=== PATIENT | male | born 1965 | race Caucasian/White ===

== ENCOUNTER 2022-06-03 09:00 | Emergency (ER) | payer BC, SELFPAY ==
[2022-06-03 09:27] VITALS: BP 173/99; PULSE 94; RESP 18; TEMP 35.2; O2SAT 96; BMI 34.2
--- NOTE | 2022-06-03 10:15 | ED.GENADULT ---
HPI - General Adult General Chief complaint: Skin/Abscess/Foreign Body Stated complaint: Cyst Time Seen by Provider: 06/03/22 09:38 Source: patient Mode of arrival: ambulatory Limitations: no limitations History of Present Illness HPI narrative: 56-year-old male who is healthy presents with redness and swelling to the left buttocks since . No injury or trauma. No fevers or chills. No drainage from the site. Related Data Previous Rx's Medication Instructions Recorded doxycycline monohydrate 100 mg 100 mg PO BID #20 caps 06/03/22 capsule Allergies Allergy/AdvReac Type Severity Reaction Status Date / Time No Known Allergies Allergy Verified 06/03/22 09:30 Review of Systems Review of Systems: Yes all other systems are reviewed and are negative Constitutional: Constitutional: Reports no additional constitutional complaints, Denies chills, Denies fever(s) and Denies night sweats Gastrointestinal: Gastrointestinal: Reports no additional gastrointestinal complaints, Denies constipation and Denies diarrhea Musculoskeletal: Musculoskeletal: Reports no additional musculoskeletal complaints, Denies numbness and Denies tingling Integumentary/Breasts: Skin/Breast: Reports system reviewed and no additional complaints, except as docu, Reports swelling, Reports erythema and Denies rash Neurologic: Reports system reviewed and no additional complaints, except as documented, Denies numbness and Denies tingling PMFSH Past Medical History Attestation statement: The following information was validated with the patient. Source: old records reviewed and nursing notes reviewed Social History Social History Advance Directives: Yes Advance Directives Information Provided: Yes Advance Directives on File: No Physical Exam ED Vital Signs: Vital Signs - 24 hr 06/03/22 09:27 Temperature 95.4 F L Pulse Rate 94 Respiratory Rate 18 Blood Pressure 173/99 H Pulse Oximetry 96 Oxygen Delivery Method Room Air BMI result Body Mass Index 34.2 Const General: cooperative, healthy appearing, comfortable and alert Orientation/consciousness: patient oriented x3 Limitations: no limitations HENMT Head: Yes normal to inspection Eyes General: appearance normal, both eyes and all related structures Neck Neck: Yes normal visual inspection Chest Chest palpation & inspection: normal inspection of the chest Resp Effort & Inspection: normal respiratory effort Cardio Peripheral pulses: Peripheral pulses 2+ throughout Back/Spine/Pelvis Back/spine/pelvis image: 1. Medium-sized abscess with tenderness, redness and warmth and central fluctuance. It does not extend to the perineum. there is no extension into the anal area Skin General skin exam: no rashes or lesions noted Neuro General: patient oriented x3 and moves all extremities Cognition (Neuro): normal cognition Gait exam (Neuro): Normal gait present Course Course Course Narrative: patient tolerated I and D well. Will discharge him home with course of antibiotics. Reviewed worrisome signs and symptoms of when to return to the emergency department. Comfortable discharge home. Procedures Abscess I/D Site: other (left buttocks) Side (if applicable): left Local Anesthetic: lidocaine 1% Amount of anesthesia used (mL): 5 Technique: incised with blade Amount of fluid expressed (mL): 10 Sent for culture/gram staining?: No Irrigation: No Packing used?: iodoform Medical Decision Making MDM Narrative Medical decision making narrative: 56-year-old male here with abscess the left buttocks for several days. No fevers or chills. Overall patient nontoxic. Vitals are stable. See procedure note for I and D Discharge Plan Discharge Clinical Impression: Abscess of skin or subcutaneous tissue Patient Disposition: Home, Self-Care Instructions: Abscess (ED) Additional Instructions: Packing removal in 48 hrs Leave dressing in place until then Prescriptions: New doxycycline monohydrate 100 mg capsule 100 mg PO BID Qty: 20 0RF Referrals: Ron Steel MD [Primary Care Provider] - (as needed) Interventions: ED Discharge Assessment Last Done: 06/03/22 10:24 Discharge Date/Time: 06/03/22 10:25
== END 2022-06-03 10:25 | disposition home or self-care (01) ==
PROVIDERS: Emergency Provider Emergency Medicine; PCP Internal Medicine
DX: L02.31 Cutaneous abscess of buttock (principal)
CPT/HCPCS: 10060; 99282; 99284